=== PATIENT | female | born 1945 | race Caucasian/White ===

== ENCOUNTER 2021-07-03 17:44 | Emergency (ER) | payer OTHER, SELFPAY ==
[2021-07-03 18:31] VITALS: BP 182/94; PULSE 75; RESP 18; TEMP 36.4; O2SAT 98
--- NOTE | 2021-07-03 19:11 | ED_ITS ---
HPI - Abdominal Pain General Chief Complaint: Abdominal Pain Stated Complaint: pain in stomache radiating to back Time Seen by Provider: 07/03/21 19:04 Source: patient Mode of arrival: Ambulatory History of Present Illness HPI narrative: 75-year-old female nonsmoker with history of hypertension and hypothyroid presents with a chief complaint of episodes of epigastric pain that radiates to her back that seemed to be worse with eating, drinking and lying flat. The symptoms have been gradually worsening over the past few weeks. She denies any dizziness, weakness or lightheadedness. She has no fever or chills. She has nausea but denies any vomiting. She has had loose stools but states this has been the case for much of the past year. She denies any significant change in her diet or medications. She has very limited if any alcohol. Related Data Home Medications Medication Instructions Recorded Confirmed LISINOPRIL (Zestril / Prinivil) 20 mg PO #0 06/19/07 levothyroxine 75 mcg tablet 0.075 mg PO QDAY #0 10/09/10 (Synthroid) liothyronine 5 mcg tablet (Cytomel) 5 mcg PO Q DAY #0 10/09/10 Previous Rx's Medication Instructions Recorded pantoprazole 40 mg tablet,delayed 40 mg PO DAILY #30 tab 07/03/21 release (Protonix) Allergies Allergy/AdvReac Type Severity Reaction Status Date / Time Sulfa (Sulfonamide Allergy Verified 07/03/21 18:31 Antibiotics) Review of Systems Review of Systems Narrative: GENERAL: Denies chills, fatigue, malaise, fever, sweats. HEENT: Denies sinus pain, ear pain, sore throat, difficulty swallowing, dizziness. RESPIRATORY: Denies dyspnea, cough, wheezing, hemoptysis, sputum. CARDIOVASCULAR: Denies chest pain, palpitations, orthopnea, edema, GASTROINTESTINAL: See HPI : Denies dysuria, frequency, incontinence, hematuria, urinary retention. MUSCULOSKELETAL: denies weakness, joint pain, or bony pain SKIN: Denies rash, skin lesions, or other NEUROLOGIC: Denies weakness, headache, numbness, change in speech, confusion, seizures, incoordination. PSYCHIATRIC: No concerning psychosocial issues. 12 point review of systems is negative except for those stated above Patient History Social History Smoking Status: Never smoker Smoking Status: Never smoker Substance Use Type: does not use Exam Narrative Exam Narrative: GENERAL: [75] year old patient appears stated age. Well-developed patient, in mild distress. HEAD: Atraumatic. Normocephalic. EYES: Pupils equal round and reactive. Extraocular motions intact. No scleral icterus. No injection or drainage. ENT: Nose without bleeding, purulent drainage. Throat without erythema, tonsi llar hypertrophy or exudate. Airway patent. NECK: Trachea midline. Non tender CARDIOVASCULAR: Regular rate and rhythm without murmurs, gallops, or rubs. RESPIRATORY: Clear to auscultation. Breath sounds equal bilaterally. No wheezes, rales, or rhonchi. GASTROINTESTINAL: Abdomen soft, mild epigastric pain nondistended. Bowel sounds present in all 4 quadrants EXTREMITIES: No edema or joint tenderness. BACK: Nontender without deformity or crepitance. No flank tenderness. NEURO: AOx3. SKIN: No rash or erythema of visible areas Initial Vital Signs Initial Vital Signs: Vital Signs Temperature 97.6 F 07/03/21 18:31 Pulse Rate 75 07/03/21 18:31 Respiratory Rate 18 07/03/21 18:31 Blood Pressure 182/94 H 07/03/21 18:31 Pulse Oximetry 98 07/03/21 18:31 Course Orders Ordered: Discontinued Medications Al Hydrox/Mg Hydrox/Simethicone 20 ml/ Lidocaine HCl 15 ml 0 ml PO NOW ONE Stop: 07/03/21 19:13 Last Admin: 07/03/21 19:59 Dose: 35 ml Documented by: [email or web address] Sodium Chloride (Normal Saline 0.9%) 1,000 mls @ 1,000 mls/hr IV BOLUS ONE Stop: 07/03/21 20:11 Last Admin: 07/03/21 20:00 Dose: 1,000 mls/hr Documented by: [email or web address] Ondansetron HCl (Ondansetron 4 Mg/2 Ml Inj) 4 mg IV NOW ONE Stop: 07/03/21 19:13 Last Admin: 07/03/21 20:09 Dose: Not Given Documented by: [email or web address] Pantoprazole Sodium (Pantoprazole 40 Mg Vial) 40 mg IV NOW ONE Stop: 07/03/21 19:13 Last Admin: 07/03/21 19:58 Dose: 40 mg Documented by: [email or web address] Vital Signs Vital signs: Vital Signs - 8 hr 07/03/21 18:31 Temperature 97.6 F Pulse Rate 75 Respiratory Rate 18 Blood Pressure 182/94 H Pulse Oximetry 98 MDM - Abdominal Pain Lab Data Result diagrams: 07/03/21 18:44 07/03/21 18:44 Labs: Lab Results 07/03/21 07/03/21 Range/Units 18:44 18:44 WBC 6.5 (4.5-11.0) X10^3/uL RBC 4.64 (4.0-5.2) X10^6/uL Hgb 14.0 (12.0-16.0) g/dL Hct 41.0 (36-46) % MCV 88.4 (80-100) fL MCH 30.2 (26-34) PG MCHC 34.2 (30-36) % RDW 14.4 (11.6-14.8) % Plt Count 180 (150-400) X10^3/uL Neut % (Auto) 62.2 (50-75) % Lymph % (Auto) 24.1 L (25-40) % [place] % (Auto) 8.4 (3-14) % Eos % (Auto) 4.5 H (2-4) % Baso % (Auto) 0.8 (0-2) % Neut # (Auto) 4100 (3378-3420) /uL Lymph # (Auto) 1600 (9861-8688) /uL [place] # (Auto) 500 (0-900) /uL Eos # (Auto) 300 (0-450) /uL Baso # (Auto) 100 (0-100) /uL Sodium 139 (137-145) mmol/L Potassium 4.4 (3.4-5.1) mmol/L Chloride 105 (98-107) mmol/L Carbon Dioxide 24 (22-32) mmol/L BUN 30 H (7-17) mg/dL Creatinine 1.29 H (0.52-1.04) mg/dL Estimated GFR 44 L (>60) mL/min BUN/Creatinine Ratio 23.3 H (6-22) Glucose 135 H (80-110) mg/dL Calcium 9.0 (8.4-10.2) mg/dL Total Bilirubin 0.5 (0.2-1.3) mg/dL AST 33 (14-36) IU/L ALT 20 (<35) IU/L Alkaline Phosphatase 100 (38-126) U/L Total Creatine Kinase 312 H (30-135) U/L CK-MB (CK-2) 4.66 H (<2.37) ng/mL CK-MB (CK-2) Rel Index 1.5 (1.5-5.0) % Troponin I < 0.012 (0.01-0.034) ng/mL NT-Pro-B Natriuret Pep 158 H (<125) pg/mL Total Protein 7.5 (6.3-8.2) g/dL Albumin 4.4 (3.5-5.0) g/dL Globulin 3.1 (1.7-4.1) g/dL Albumin/Globulin Ratio 1.4 (1.0-2.8) Lipase 223 (23-300) U/L Imaging Data Chest x-ray: Radiologist's Impression: Michelle Jackson??75??F??1945 ? Allergy/Adv: Sulfa (Sulfonamide Antibiotics) (More??) Close Chest/Abdomen X-ray (Signed) Min Jamil - 07/03/21 Launch?[place] [address] XRay Report Signed Patient: Michelle Jackson MR#: [id number] : 1945 Acct:[id number] Age/Sex: 75 / F Date of Service: 07/03/21 Loc: ED Accession Number: [id number] ?? Procedure: XR acute abdomen series Ordering Provider: Shashi Acharya D.O. PROCEDURE:? XR ACUTE ABDOMEN SERIES ? INDICATIONS:? epigastric pain, gassy, diarrhea ? TECHNIQUE:? One view chest and two views of the abdomen were acquired.? ? COMPARISON:? None. ? FINDINGS:? ? Surgical changes and devices:? Cholecystectomy clips ? Chest:? Lungs are clear.? Heart size is normal.? No pleural effusions.? No pneumoperitoneum.? ? Abdomen:? Bowel gas pattern is normal.? No suspicious calcifications.? Visu alized solid organ contours appear normal.? ? Bones:? No suspicious bony lesions.? ? IMPRESSION:? No evidence acute abdominal process or acute pulmonary process. ? ? Dictated by: Min Jamil M.D. on 07/03/2021 at 19:55 ? ? Approved by: Min Jamil M.D. on 07/03/2021 at 19:56 ? MDM Narrative Medical decision making narrative: Multiple etiologies for patient's symptoms considered include, but not limited to: Pancreatitis versus gallbladder disease versus bowel obstruction versus reflux versus other Patient's symptoms improved over duration of stay with above-stated therapies. History, physical exam, labs, imaging, and response to therapies have been reassuring. Findings and discharge diagnosis discussed with patient/family followed by verbalization of understanding Return precautions discussed with patient/family whom verbalize understanding. Pain has been well controlled and patient is tolerating oral hydration. Discharge Plan Departure Patient Disposition: Home Clinical Impression: Abdominal pain, epigastric Instructions: DI for Epigastric Pain Activity Restrictions/Additional Instructions: *You have been diagnosed with [epigastric pain most likely due to acid reflux. As we discussed your history and physical exam as well as labs, imaging and response to therapies are very reassuring and there is no evidence of bowel obstruction, pancreatitis or other diagnosis that would require a different or specific intervention *What to do: *Please continue to take your regular medications as directed. [id number]-[id number]-fleycea medications such as Mylanta or Maalox are likely to provide relief as well [ x] New medication prescriptions sent to your pharmacy: [facility] ] [ ] New medication written as a paper prescription [ ] No new medications given *Please follow up with your primary care provider in 2-3 days, call for an appointment. Let them know you were seen in the Emergency Department and that we ask that you be seen in follow up. We will electronically transmit a record of today's note if your PCP is in our system *If you do not have a primary care provider please contact the [facility] Resource line at [phone]. They will ask some questions about your medical history and help get you set up with a doctor in the community. * as we discussed please consider dietary modifications including a clear liquid diet for the next 24-48 hours and avoidance of alcohol, caffeine, nicotine, spicy or acidic foods in an ongoing fashion as these are likely to trigger what I think is causing your symptoms *Return to Emergency Department if you should have any new, worsening or concerning symptoms, such as [fever greater than 101 F, shaking chills, worsening pain, persistent vomiting or other bothersome symptoms] Prescriptions: New pantoprazole [Protonix] 40 mg tablet,delayed release (DR/EC) 40 mg PO DAILY Qty: 30 0RF No Action LISINOPRIL (Zestril / Prinivil) 20 mg PO Qty: 0 0RF liothyronine [Cytomel] 5 MCG tablet 5 mcg PO Q DAY Qty: 0 0RF levothyroxine [Synthroid] 75 MCG tablet 0.075 mg PO QDAY Qty: 0 0RF Referrals: Kervin Thomas MD [Primary Care Provider] -
[2021-07-03 19:12] LABS: Add Manual Diff / Slide Review NO; Basophils Absolute Auto 100 /uL (0-100); Basophils Percent Auto 0.8 % (0-2); Eosinophils Absolute Auto 300 /uL (0-450); Eosinophils Percent Auto 4.5 % (2-4); Lymphocytes Absolute Auto 1600 /uL (1100-4500); Lymphocytes Percent Auto 24.1 % (25-40); Mean Corpuscular HGB Conc 34.2 % (30-36); Mean Corpuscular Hemoglobin 30.2 PG (26-34); Mean Corpuscular Volume 88.4 fL (80-100); Monocytes Absolute Auto 500 /uL (0-900); Monocytes Percent Auto 8.4 % (3-14); Neutrophils Absolute Auto 4100 /uL (1500-7000); Neutrophils Percent Auto 62.2 % (50-75); Platelet Count 180 X10^3/uL (150-400); Red Blood Cell Count 4.64 X10^6/uL (4.0-5.2); Red Cell Distribution Width 14.4 % (11.6-14.8); White Blood Cell Count 6.5 X10^3/uL (4.5-11.0)
--- NOTE | 2021-07-03 19:12 | DI.RAD.S_ITS ---
PROCEDURE: XR ACUTE ABDOMEN SERIES INDICATIONS: epigastric pain, gassy, diarrhea TECHNIQUE: One view chest and two views of the abdomen were acquired. COMPARISON: None. FINDINGS: Surgical changes and devices: Cholecystectomy clips Chest: Lungs are clear. Heart size is normal. No pleural effusions. No pneumoperitoneum. Abdomen: Bowel gas pattern is normal. No suspicious calcifications. Visualized solid organ contours appear normal. Bones: No suspicious bony lesions. IMPRESSION: No evidence acute abdominal process or acute pulmonary process. Dictated by: Min Jamil M.D. on 07/03/2021 at 19:55 Approved by: Min Jamil M.D. on 07/03/2021 at 19:56
[2021-07-03 19:17] LABS: Alanine Aminotransferase 20 IU/L (<35); Albumin 4.4 g/dL (3.5-5.0); Albumin Globulin Ratio 1.4 (1.0-2.8); Alkaline Phosphatase 100 U/L (38-126); Aspartate Aminotransferase 33 IU/L (14-36); BUN Creatinine Ratio 23.3 (6-22); Bilirubin Total 0.5 mg/dL (0.2-1.3); Blood Urea Nitrogen 30 mg/dL (7-17); Carbon Dioxide 24 mmol/L (22-32); Chloride 105 mmol/L (98-107); Creatine Kinase 312 U/L (30-135); Estimated Glomerular Filt Rate 44 mL/min (>60); Globulin 3.1 g/dL (1.7-4.1); Glucose 135 mg/dL (80-110); HEMOLYSIS < 15 (0-50); Lipase 223 U/L (23-300); Potassium 4.4 mmol/L (3.4-5.1); Sodium 139 mmol/L (137-145); Total Protein 7.5 g/dL (6.3-8.2)
[2021-07-03 19:29] LABS: NT-proBNP (BNP-Adult 18+) 158 pg/mL (<125); Troponin I < 0.012 ng/mL (0.01-0.034)
[2021-07-03 19:32] LABS: CKMB % Relative Index 1.5 % (1.5-5.0); Creatine Kinase MB 4.66 ng/mL (<2.37)
[2021-07-03] MEDS: PANTOPRAZOLE 40 MG VIAL IV (19:58)
[2021-07-03] MEDS: MAG HYDROX/ALUMINUM/SIMETH SUS 20 ML, LIDOCAINE VISCOUS 2% 15 ML PO (19:59)
[2021-07-03] MEDS: SODIUM CHLORIDE 0.9% 1,000 ML 1000 ML IV (20:00)
[2021-07-03 21:29] VITALS: BP 127/81; PULSE 81; RESP 17; O2SAT 97
== END 2021-07-03 21:30 | disposition home or self-care (01) ==
PROVIDERS: Emergency Provider Emergency Medicine; PCP Family Medicine
DX: R10.13 Epigastric pain (principal)
CPT/HCPCS: 74022; 80053; 82550; 82553; 83690; 83880; 84484; 85025; 93005; 93010; 96374; 99284; C9113; J2405

== ENCOUNTER 2024-03-19 14:01 | Emergency (ER) | payer MEDICARE, SELFPAY ==
[2024-03-19 14:05] VITALS: BP 129/73; PULSE 80; RESP 18; TEMP 36.6; O2SAT 97; BMI 31.0
--- NOTE | 2024-03-19 14:25 | EKG_ITS ---
[address] [address] Test Date: 2024-03-19 Pat Name: Michelle Jackson Department: [facility] Room: Gender: Female Multi Disciplined Language Analyst: ALLYSON : 1945 Requested By: Order Number: [id number] Reading MD: Boo Quinones Measurements Intervals [place] Rate: 67 P: 51 IA: 158 QRS: -28 QRSD: 76 T: 46 QT: 380 QTc: 401 Interpretive Statements Normal sinus rhythm Electronically Signed On 03-20-2024 23:45:11 PST by Boo Quinones
[2024-03-19 14:29] LABS: Add Manual Diff / Slide Review NO; Basophils Absolute Auto 100 /uL (0-100); Basophils Percent Auto 0.7 % (0-2); Eosinophils Absolute Auto 200 /uL (0-450); Eosinophils Percent Auto 3.1 % (2-4); Hematocrit 44.5 % (36-46); Lymphocytes Absolute Auto 1900 /uL (1100-4500); Lymphocytes Percent Auto 25.7 % (25-40); Mean Corpuscular HGB Conc 33.8 % (30-36); Mean Corpuscular Hemoglobin 30.3 PG (26-34); Mean Corpuscular Volume 89.7 fL (80-100); Monocytes Absolute Auto 700 /uL (0-900); Monocytes Percent Auto 8.9 % (3-14); Neutrophils Absolute Auto 4700 /uL (1500-7000); Neutrophils Percent Auto 61.6 % (50-75); Platelet Count 191 X10^3/uL (150-400); Red Blood Cell Count 4.97 X10^6/uL (4.0-5.2); Red Cell Distribution Width 14.7 % (11.6-14.8); White Blood Cell Count 7.6 X10^3/uL (4.5-11.0)
[2024-03-19 14:46] LABS: Alanine Aminotransferase 31 IU/L (<35); Albumin 4.6 g/dL (3.5-5.0); Albumin Globulin Ratio 1.4 (1.0-2.8); Alkaline Phosphatase 100 U/L (38-126); Aspartate Aminotransferase 42 IU/L (14-36); BUN Creatinine Ratio 19.5 (6-22); Bilirubin Total 0.8 mg/dL (0.2-1.3); Blood Urea Nitrogen 29 mg/dL (7-17); Calcium 9.3 mg/dL (8.4-10.2); Carbon Dioxide 21 mmol/L (22-32); Chloride 104 mmol/L (98-107); Estimated Glomerular Filt Rate 36 mL/min (>60); Globulin 3.4 g/dL (1.7-4.1); Glucose 104 mg/dL (80-110); Lipase 90 U/L (23-300); Sodium 137 mmol/L (137-145)
[2024-03-19 14:48] LABS: HEMOLYSIS 76 (0-50)
[2024-03-19 15:29] LABS: Bacteria Urine Moderate (10-30); RBC Urine 0-1/HPF (0-5/HPF); Squamous Epithelial Cell Urine 5-10 /HPF (0-5/HPF); Urine Volume 10mL (spun); WBC Urine 5-10/HPF (0-5/HPF)
[2024-03-19 15:30] LABS: Amorphous Sediment Urine 1+; Culture Indicated Urine Cult Not Indicated
--- NOTE | 2024-03-19 16:51 | DI.CT.S_ITS ---
PROCEDURE: CT ABDOMEN PELVIS WO CON INDICATIONS: Epigastric pain TECHNIQUE: Axial sections were acquired from the lung bases to the pubic symphysis. Coronal and sagittal reformats were performed. For radiation dose reduction, the following was used: automated exposure control, adjustment of mA and/or kV according to patient size. COMPARISON: None. FINDINGS: Image quality: Diagnostic. Lower Chest: Severe coronary artery atherosclerotic calcifications are seen. Bilateral lung bases are clear. No pericardial effusion. URINARY: Right Kidney: No stones or hydronephrosis. Right Ureter: No hydroureter. Left Kidney: No stones or hydronephrosis. Left Ureter: No hydroureter. Bladder: Normal wall thickness. No stones. ABDOMEN: Liver: No contour-deforming solid mass. Gallbladder: Gallbladder is surgically absent. Biliary ducts: No biliary dilation. Pancreas: No ductal dilation. Spleen: Size is within normal limits. Adrenal Glands: 3.1 x 2.4 cm hypodense nodule in left adrenal gland is seen measures 15 Hounsfield unit in density. Stomach and Bowel: There is no bowel obstruction. No gastric or small bowel wall thickening. Moderate fecal stasis in the colon is seen. Sigmoid diverticulosis without CT evidence of acute diverticulitis. No colonic wall thickening. No abscess collection. Peritoneum: No abnormal intraperitoneal fluid. No free air. Ventral Wall: No hernia. Abdominal Nodes: No enlarged retroperitoneal or mesenteric lymph nodes. Vessels: Aorta and inferior vena cava are normal in size. PELVIS: Pelvic Organs: Unremarkable. Pelvic Nodes: Unremarkable. Miscellaneous: No inguinal hernias are seen. Bones: No aggressive appearing intraosseous lesions. Degenerative disc disease throughout lower thoracic and lumbar spine is seen. IMPRESSION: 1. No bowel obstruction or abnormal bowel wall thickening. No free fluid or free air. Mild constipation. 2. No obstructing renal stones or hydronephrosis. Normal appearing urinary bladder. 3. Prior cholecystectomy. No biliary ductal dilatation. 4. 3.1 x 2.4 cm left adrenal hypodense nodule as described above. Finding may represent adrenal adenoma. Follow-up CT or MRI of abdomen without and with contrast can be done for further evaluation. Dictated by: Jacinto Copeland M.D. on 03/19/2024 at 17:00 Approved by: Jacinto Copeland M.D. on 03/19/2024 at 17:04
--- NOTE | 2024-03-19 16:55 | ED.ABDPAIN ---
HPI - Abdominal Pain General Chief Complaint: Abdominal Pain Stated Complaint: abd px sent by [facility] Time Seen by Provider: 03/19/24 16:22 History of Present Illness HPI narrative: Patient here for epigastric discomfort with a past 2 days. Currently no nausea or vomiting or abdominal pain. Patient sent here by walk-in clinic. Patient states pain is worse with eating. Radiates to mid back. No chest pain. No shortness of breath. No prior history EGD or endoscopy for the stomach. Patient is not on any antacids. Patient does have history of cholecystectomy over a year ago. Patient in no distress at this time. Related Data Home Medications Medication Instructions Recorded Confirmed LISINOPRIL (Zestril / Prinivil) 20 mg PO ##0 06/19/07 levothyroxine 75 mcg tablet 0.075 mg PO QDAY ##0 10/09/10 (Synthroid) liothyronine 5 mcg tablet (Cytomel) 5 mcg PO Q DAY ##0 10/09/10 Previous Rx's Medication Instructions Recorded pantoprazole 40 mg tablet,delayed 40 mg PO DAILY #30 tabs 07/03/21 release (Protonix) pantoprazole 40 mg tablet,delayed 40 mg PO DAILY #30 tabs 03/19/24 release (Protonix) sucralfate 1 gram tablet (Carafate) 1 g PO QAC #20 tabs 03/19/24 Allergies Allergy/AdvReac Type Severity Reaction Status Date / Time Sulfa (Sulfonamide Allergy Verified 07/03/21 18:31 Antibiotics) Review of Systems Review of Systems Narrative: GENERAL: Negative chills, fatigue, malaise, fever, sweats. HEENT: Negative sinus pain, ear pain, sore throat RESPIRATORY: Negative dyspnea, cough CARDIOVASCULAR: Negative chest pain, palpitations GASTROINTESTINAL: Negative nausea, vomiting, positive abdominal pain : Negative dysuria, frequency, hematuria MUSCULOSKELETAL: Negative muscle or bony pain SKIN: Negative rash, skin lesions NEUROLOGIC: Negative weakness, numbness ROS Unobtainable: All systems reviewed & are unremarkable except as noted in HPI and below Patient History Social History Smoking Status: Never smoker Smoking Status: Never smoker Exam Narrative Exam Narrative: GENERAL: in no distress, not toxic not dyspneic HEAD: Normocephalic. EYES: Pupils equal round ENT: Mucous membranes moist. NECK: Trachea midline. CARDIOVASCULAR: Regular rate and rhythm RESPIRATORY: Clear to auscultation. Breath sounds equal bilaterally. No wheezes, rales, or rhonchi. GASTROINTESTINAL: Abdomen soft, non-tender no peritoneal signs no pain out of portion exam bowel sounds are present no guarding no rebound no bounding pulsatile mass no bruit EXTREMITIES: No gross deformities. BACK: No flank tenderness. NEURO: AOx4. Clear speech light touch intact bilateral face and hands strong equal improvement leader SKIN: Warm and dry PSYCH: Not anxious, is cooperative Initial Vital Signs Initial Vital Signs: Vital Signs Temperature 97.9 F 03/19/24 14:05 Pulse Rate 80 03/19/24 14:05 Respiratory Rate 18 03/19/24 14:05 Blood Pressure 129/73 03/19/24 14:05 Pulse Oximetry 97 03/19/24 14:05 Oxygen Delivery Method Room Air 03/19/24 14:05 Course Orders Ordered: Discontinued Medications Ondansetron HCl (Ondansetron 4 Mg/2 Ml Inj) 4 mg IV NOW PRN PRN Reason: Nausea And Vomiting Ondansetron HCl (Ondansetron 4 Mg Odt) 4 mg PO NOW PRN PRN Reason: Nausea And Vomiting Pantoprazole Sodium (Pantoprazole 40 Mg Vial) 40 mg IV NOW ONE Stop: 03/19/24 16:58 Last Admin: 03/19/24 17:46 Dose: Not Given Documented By: LIVE Pantoprazole Sodium (Pantoprazole Dr 20 Mg Tablet) 20 mg PO NOW ONE Stop: 03/19/24 17:17 Last Admin: 03/19/24 17:19 Dose: 20 mg Documented By: FARHEEN Vital Signs Vital signs: Vital Signs - 8 hr 03/19/24 14:05 Temperature 97.9 F Pulse Rate 80 Respiratory Rate 18 Blood Pressure 129/73 Pulse Oximetry 97 Oxygen Delivery Method Room Air MDM - Abdominal Pain Lab Data 03/19/24 14:20 03/19/24 14:20 Labs: Lab Results 03/19/24 03/19/24 Range/Units 14:20 14:43 WBC 7.6 (4.5-11.0) X10^3/uL RBC 4.97 (4.0-5.2) X10^6/uL Hgb 15.0 (12.0-16.0) g/dL Hct 44.5 (36-46) % MCV 89.7 (80-100) fL MCH 30.3 (26-34) PG MCHC 33.8 (30-36) % RDW 14.7 (11.6-14.8) % Plt Count 191 (150-400) X10^3/uL Neut % (Auto) 61.6 (50-75) % Lymph % (Auto) 25.7 (25-40) % [place] % (Auto) 8.9 (3-14) % Eos % (Auto) 3.1 (2-4) % Baso % (Auto) 0.7 (0-2) % Neut # (Auto) 4700 (2316-3568) /uL Lymph # (Auto) 1900 (1609-1383) /uL [place] # (Auto) 700 (0-900) /uL Eos # (Auto) 200 (0-450) /uL Baso # (Auto) 100 (0-100) /uL Sodium 137 (137-145) mmol/L Potassium 5.0 (3.4-5.1) mmol/L Chloride 104 (98-107) mmol/L Carbon Dioxide 21 L (22-32) mmol/L BUN 29 H (7-17) mg/dL Creatinine 1.49 H (0.52-1.04) mg/dL Estimated GFR 36 L (>60) mL/min BUN/Creatinine Ratio 19.5 (6-22) Glucose 104 (80-110) mg/dL Calcium 9.3 (8.4-10.2) mg/dL Total Bilirubin 0.8 (0.2-1.3) mg/dL AST 42 H (14-36) IU/L ALT 31 (<35) IU/L Alkaline Phosphatase 100 (38-126) U/L Total Protein 8.0 (6.3-8.2) g/dL Albumin 4.6 (3.5-5.0) g/dL Globulin 3.4 (1.7-4.1) g/dL Albumin/Globulin Ratio 1.4 (1.0-2.8) Lipase 90 (23-300) U/L Urine RBC 0-1/hpf (0-5/HPF) Urine WBC 5-10/hpf H (0-5/HPF) Ur Squamous Epith Cells 5-10 /hpf H (0-5/HPF) Amorphous Sediment 1+ Urine Bacteria Moderate (10-30) H (None) Ur Culture Indicated? Cult not indicated Vol Urine Centrifuged 10ml (spun) Point of care testing: Urine Dip Bedside Urine Glucose Negative Bedside Urine Bilirubin - Negative Bedside Urine Ketone - Negative Urine Specific [place] 1.015 Bedside Urine Occult Blood - Negative Bedside Urine pH 6.0 Bedside Urine Protein - Negative Bedside Urine Urobilinogen - Negative Bedside Urine Nitrite - Negative Bedside Urine Leukocytes ++ [address] scan - abdomen/pelvis: Radiologist's Impression: [place] [address] CT Scan Report Signed Patient: Michelle Jackson MR#: [id number] : 1945 Acct:[id number] Age/Sex: 78 / F Date of Service: 03/19/24 Loc: ED Accession Number: [id number] Procedure: CT abdomen pelvis wo con Ordering Provider: Ashok Mars MD PROCEDURE: CT ABDOMEN PELVIS WO CON INDICATIONS: Epigastric pain TECHNIQUE: Axial sections were acquired from the lung bases to the pubic symphysis. Coronal and sagittal reformats were performed. For radiation dose reduction, the following was used: automated exposure control, adjustment of mA and/or kV according to patient size. COMPARISON: None. FINDINGS: Image quality: Diagnostic. Lower Chest: Severe coronary artery atherosclerotic calcifications are seen. Bilateral lung bases are clear. No pericardial effusion. URINARY: Right Kidney: No stones or hydronephrosis. Right Ureter: No hydroureter. Left Kidney: No stones or hydronephrosis. Left Ureter: No hydroureter. Bladder: Normal wall thickness. No stones. ABDOMEN: Liver: No contour-deforming solid mass. Gallbladder: Gallbladder is surgically absent. Biliary ducts: No biliary dilation. Pancreas: No ductal dilation. Spleen: Size is within normal limits. Adrenal Glands: 3.1 x 2.4 cm hypodense nodule in left adrenal gland is seen measures 15 Hounsfield unit in density. Stomach and Bowel: There is no bowel obstruction. No gastric or small bowel wall thickening. Moderate fecal stasis in the colon is seen. Sigmoid diverticulosis without CT evidence of acute diverticulitis. No colonic wall thickening. No abscess collection. Peritoneum: No abnormal intraperitoneal fluid. No free air. Ventral Wall: No hernia. Abdominal Nodes: No enlarged retroperitoneal or mesenteric lymph nodes. Vessels: Aorta and inferior vena cava are normal in size. PELVIS: Pelvic Organs: Unremarkable. Pelvic Nodes: Unremarkable. Miscellaneous: No inguinal hernias are seen. Bones: No aggressive appearing intraosseous lesions. Degenerative disc disease throughout lower thoracic and lumbar spine is seen. IMPRESSION: 1. No bowel obstruction or abnormal bowel wall thickening. No free fluid or free air. Mild constipation. 2. No obstructing renal stones or hydronephrosis. Normal appearing urinary bladder. 3. Prior cholecystectomy. No biliary ductal dilatation. 4. 3.1 x 2.4 cm left adrenal hypodense nodule as described above. Finding may represent adrenal adenoma. Follow-up CT or MRI of abdomen without and with contrast can be done for further evaluation. Dictated by: Jacinto Copeland M.D. on 03/19/2024 at 17:00 Approved by: Jacinto Copeland M.D. on 03/19/2024 at 17:04 [facility] Narrative Medical decision making narrative: Patient here for epigastric discomfort with a past 2 days. Currently no nausea or vomiting or abdominal pain. Patient sent here by walk-in clinic. Patient states pain is worse with eating. Radiates to mid back. No chest pain. No shortness of breath. No prior history EGD or endoscopy for the stomach. Patient is not on any antacids. Patient does have history of cholecystectomy over a year ago. Patient in no distress at this time. After history and exam CBC CMP lipase EKG CT abdomen pelvis [facility] Medical records reviewed: No recent visit for this complaint Differential considered: Includes but not limited to pancreatitis gastritis acid reflux bowel obstruction Lab Test results independently reviewed as above. Pertinent findings: WBC 7.6 hemoglobin 15.0 sodium 137 potassium 5.0 BUN 29 creatinine 1.49, this is patient's baseline renal function, GFR 36 AST 42 ALT 31 lipase 90 urinalysis negative blood negative ketone negative nitrite positive leukocyte esterase however patient has no urinary complaints. Independently reviewed EKG normal sinus rhythm normal EKG rate 67 Imaging studies independently reviewed: CT abdomen pelvis no acute finding Consultations: None indicated at this time Treatments: see nurse's notes Re-evaluations: 5:30 p.m.. at bedside. Reviewed results with patient and . Referral for General surgery for EGD endoscopy of the stomach will be provided. Reviewed with him left adrenal findings on CT imaging needs follow up with primary care for MRI. This is unrelated to today's symptoms. Prescription for Protonix will be provided. Patient's symptom free at time of discharge. They desire discharge home. Reviewed with patient no fried fatty greasy foods spicy foods or carbonated drinks or acidic drinks, that may upset the stomach more Discussion: Appropriate for discharge home exam is reassuring return precautions reviewed with patient. Patient's symptom free at time of discharge. Likely gastric ulcer/duodenitis/gastritis, Protonix will be prescribed. Patient is symptom-free at time of discharge. They desire discharge home. No troponin indicated at this time. Patient has reproducible epigastric complaints, urinalysis reviewed however no urinary complaints. No antibiotics indicated at this time. Diagnosis: Epigastric abdominal pain Discharge Plan Departure Patient Disposition: Home Clinical Impression: Abdominal pain Qualifiers: Abdominal location: epigastric Qualified Code(s): R10.13 - Epigastric pain Instructions: DI for Abdominal Pain-Adult, DI for Dyspepsia Activity Restrictions/Additional Instructions: Your exam and laboratory studies imaging studies are reassuring. It is possible you are developing a stomach ulcer. No fried fatty greasy foods spicy foods carbonated drinks or acidic drinks. Please call provided general surgery office tomorrow to schedule outpatient endoscopy of the stomach. You will need to see your family doctor for outpatient MRI of your adrenal glands based on the CT imaging found today. Return if worse if any questions or concerns Prescriptions: New sucralfate [Carafate] 1 gram tablet 1 g PO QAC Qty: 20 0RF pantoprazole [Protonix] 40 mg tablet,delayed release (DR/EC) 40 mg PO DAILY Qty: 30 0RF No Action LISINOPRIL (Zestril / Prinivil) 20 mg PO Qty: 0 liothyronine [Cytomel] 5 MCG tablet 5 mcg PO Q DAY Qty: 0 levothyroxine [Synthroid] 75 MCG tablet 0.075 mg PO QDAY Qty: 0 pantoprazole [Protonix] 40 mg tablet,delayed release (DR/EC) 40 mg PO DAILY Qty: 30 0RF Referrals: Balwinder Manley MD [Primary Care Provider] - Nathan Michael MD [Physician] - Stand Alone Forms: Patient Portal/API/Survey
[2024-03-19] MEDS: PANTOPRAZOLE DR 20 MG TABLET PO (17:19)
[2024-03-19 17:50] VITALS: BP 139/64; PULSE 60; RESP 20; TEMP 36.6; O2SAT 97
== END 2024-03-19 17:50 | disposition home or self-care (01) ==
PROVIDERS: Emergency Provider Emergency Medicine; PCP Internal Medicine
DX: R10.13 Epigastric pain (principal); I10 Essential (primary) hypertension; Z88.2 Allergy status to sulfonamides
CPT/HCPCS: 74176; 80053; 81003; 81015; 83690; 85025; 93005; 99283; 99284

== ENCOUNTER 2024-04-18 12:49 | Day surgery (SDC) | payer MEDICARE, SELFPAY ==
--- NOTE | 2024-04-18 | PATH_ITS ---
[facility] Accession Number: [id number] No. of containers..03 Tissue . 01 Material submitted: . PART A: gastrointestinal site - ANTRUM PART B: gastrointestinal site - GASTRIC BODY PART C: esophagus, E-G Junction - GE JUNCTION . 01 Diagnosis: A. ANTRUM: Superficial fragments of foveolar mucosa with focal minimal nonspecific chronic inflammation. No Helicobacter pylori organisms identified on H/E slide. No intestinal metaplasia, dysplasia, or malignancy. . B. GASTRIC BODY: Gastric oxyntic mucosa with no significant diagnostic alterations. No significant inflammation or Helicobacter pylori organisms identified on H/E slide. No intestinal metaplasia, dysplasia, or malignancy. . C. GE JUNCTION: Squamocolumnar junctional mucosa with mild chronic inflammation. No goblet cell metaplasia or fungal organisms identified on H/E slide. No dysplasia or malignancy. MRV 04/22/2024 1632 Local . 01 Electronically signed: . Yasmeen Dunaway MD, Pathologist NPI- [id number] . 01 Gross description: . Part A: ANTRUM: Received in formalin are 3 fragment(s) of perez, soft tissue measuring 0.1 x 0.1 x 0.1 cm to 0.3 x 0.2 x 0.1 cm submitted entirely in 1 cassette(s) Part B: GASTRIC BODY: Received in formalin is 1 fragment(s) of perez, soft tissue measuring 0.4 x 0.2 x 0.2 cm submitted entirely in 1 cassette(s) Part C: GE JUNCTION: Received in formalin is 1 fragment(s) of perez, soft tissue measuring 0.3 x 0.3 x 0.2 cm submitted entirely in 1 cassette(s) /BOBBY 04/20/2024 0055 Local . 01 Pathologist provided ICD-10: R10.13 . 01 CPT . 085749, 149393, 804943 Specimen Comment: A courtesy copy of this report has been sent to [phone] Performed at: [address] [id number] MD Arthur Shaw MD Phone: [phone]
[2024-04-18 13:22] VITALS: BP 147/76; PULSE 63; RESP 16; TEMP 36.4; O2SAT 96
[2024-04-18] MEDS: LACTATED RINGERS 1,000 ML 42 ML IV (13:29)
--- NOTE | 2024-04-18 13:57 | PM.HP.IH.1 ---
History of Present Illness History of Present Illness Date Patient Seen: 04/18/24 Time Patient Seen: 13:57 Chief complaint: EGD Narrative: Michelle griffin is a 78-year-old woman who presents due to epigastric abdominal pain. She was in the ER recently and had a CT scan which did not show an obvious cause. She has had a cholecystectomy. She has never had an EGD before. The pain has been present for 6 months or so but has gotten worse. It is intermittent and seems to occur after eating. She feels it in the epigastrium and left upper quadrant. She does not take daily NSAIDs. She does not smoke. [facility] Social History Smoking Status: Never smoker alcohol intake: never Meds Home Medications and Allergies Home Medications Medication Instructions Recorded Confirmed Type LISINOPRIL (Zestril / Prinivil) 20 mg PO DAILY ##0 06/19/07 04/18/24 History levothyroxine 75 mcg tablet 0.075 mg PO QDAY ##0 10/09/10 04/18/24 History (Synthroid) liothyronine 5 mcg tablet (Cytomel) 5 mcg PO Q DAY ##0 10/09/10 History pantoprazole 40 mg tablet,delayed 40 mg PO DAILY #30 tabs 07/03/21 Rx release (Protonix) pantoprazole 40 mg tablet,delayed 40 mg PO DAILY #30 tabs 03/19/24 Rx release (Protonix) sucralfate 1 gram tablet (Carafate) 1 g PO QAC #20 tabs 03/19/24 Rx metoprolol succinate 25 mg 12.5 mg PO DAILY 04/18/24 04/18/24 History tablet,extended release 24 hr sertraline 100 mg tablet 100 mg PO DAILY 04/18/24 04/18/24 History Allergies Allergy/AdvReac Type Severity Reaction Status Date / Time Sulfa (Sulfonamide Allergy Verified 04/18/24 13:14 Antibiotics) Exam Vital Signs (past 8 hours): - 04/18/24 13:22 Temperature 97.6 F Pulse Rate 63 Respiratory Rate 16 Blood Pressure 147/76 H Pulse Oximetry 96 Oxygen Delivery Method Room Air Oxygen Flow Rate 0 Oxygen Delivery Method Room Air Oxygen Flow Rate 0 Const General: No acute distress Assessment & Plan Assessment and plan (1) Dyspepsia: Status: Acute Plan Plan for esophagogastroduodenoscopy Time-Based Coding :: [TOTAL MINUTES] spent with patient and on the chart (including review of chart, obtaining history, exam, reviewing outside data, placing orders, documenting exam and treatment plan, and counseling patient) on [DATE]. [employer] Computer Instructor Document charge(s): No
--- NOTE | 2024-04-18 14:18 | P.OP.EGD_ITS ---
Operative Date/Time/Diagnoses Date of procedure: 04/18/24 Time of procedure: 14:18 Pre-op diagnosis: Dyspepsia Post-op diagnosis: same Procedure & Clinicians Study performed: Esophagogastroduodenoscopy Same procedure as scheduled: Yes Surgeon: Linden Poe Procedure Notes Procedure in detail: Surgeon: Linden Poe MD Anesthesia: Annabella Holloway CRNA A timeout was performed. A bite blocked was placed. The patient was positioned in the left lateral decubitus position. Anesthesia was administered. The endoscope was inserted through the bite block and passed through the esophagus and stomach and into the duodenum. The duodenal mucosa appeared normal. The scope was withdrawn into the stomach. There was moderate antritis and there were some small antral ulcers with no evidence of active or recent bleeding. Random biopsies were taken from the antrum with cold forceps. There was also some moderate gastritis in the body of the stomach and random biopsies were taken with the cold forceps. The scope was retroflexed and no hiatal hernia was seen. The scope was withdrawn into the esophagus and some short segments of salmon-colored mucosa were noted at the GE junction and biopsies were taken with cold forceps.. The remainder of the esophagus was normal. The scope was withdr awn. The patient was awakened and brought to recovery. Sedation time: 9 minutes Findings: Gastritis from the midportion of the body to the antrum and several small antral ulcerations Specimens: Antrum, gastric body and GE junction Post-procedure Disposition: PACU
[2024-04-18 14:20] VITALS: BP 114/59; PULSE 71; RESP 21; TEMP 36.6; O2SAT 96
[2024-04-18 14:25] VITALS: BP 116/66; PULSE 66; RESP 20; O2SAT 97
[2024-04-18 14:30] VITALS: BP 121/67; PULSE 61; RESP 18; TEMP 36.6; O2SAT 96
[2024-04-18 14:34] VITALS: BP 124/67; PULSE 57; RESP 18; O2SAT 97
== END 2024-04-18 14:45 | disposition home or self-care (01) ==
PROVIDERS: PCP Internal Medicine; Referring Provider Surgery; Visit Provider Surgery
PROC: 0DJ08ZZ Inspection of Upper Intestinal Tract, Via Natural or Artificial Opening Endoscopic (ICD-10-PCS; CPT 43239; principal; 2024-04-18 14:30)
DX: K29.50 Unspecified chronic gastritis without bleeding (principal); K25.9 Gastric ulcer, unspecified as acute or chronic, without hemorrhage or perforation
CPT/HCPCS: 43239; J2704